=== PATIENT | male | born 1980 | race Hispanic/Latino ===

== ENCOUNTER 2017-03-14 08:24 | Emergency (ER) | payer OTHER ==
[2017-03-14 10:12] LABS: BASO % 0.4 % (0.0-1.0); EOS % 0.1 % (0.0-3.0); HEMOGLOBIN 15.6 g/dl (14.0-18.0); IMMATURE GRANULOCYTE % 0.2 % (0-0); LYMPH # 0.5 10^3/uL (1.5-4.5); LYMPH % 5.3 % (24.0-44.0); MEAN CORPUSCULAR HEMOGLOBIN 29.2 pg (27.0-33.0); MEAN CORPUSCULAR HGB CONC 33.9 g/dl (32.0-36.5); MONO # 0.8 10^3/uL (0.0-0.8); NEUTROPHILS # 7.3 10^3/uL (1.8-7.7); PLATELET COUNT, AUTOMATED 281 10^3/uL (150-450); RED BLOOD COUNT 5.35 10^6/uL (4.30-6.10); WHITE BLOOD COUNT 8.5 10^3/uL (4.0-10.0)
[2017-03-14 10:24] LABS: ANION GAP 7 MEQ/L (8-16); BLOOD UREA NITROGEN 9 MG/DL (7-18); CARBON DIOXIDE LEVEL 29 MEQ/L (21-32); CHLORIDE LEVEL 102 MEQ/L (98-107); CREATININE FOR GFR 0.93 MG/DL (0.70-1.30); GLOMERULAR FILTRATION RATE > 60.0 (>60); GLUCOSE, FASTING 103 MG/DL (70-105); POTASSIUM SERUM 3.6 MEQ/L (3.5-5.1); SODIUM LEVEL 138 MEQ/L (136-145)
[2017-03-14] MEDS: LOSARTAN 50 MG TAB PO (10:54)
[2017-03-14] MEDS: IPRATROPIUM 0.5MG/ALBUTEROL 2.5MG INH SOL UD 3ML (DUONEB)(J7620) NEB (11:05)
[2017-03-14 11:41] LABS: ALBUMIN 3.8 GM/DL (3.2-5.2); ALBUMIN/GLOBULIN RATIO 0.78 (1.00-1.93); ALKALINE PHOSPHATASE 63 U/L (45-117); ALT/SGPT 24 U/L (12-78); AST/SGOT 22 U/L (7-37); BILIRUBIN,DIRECT < 0.1 MG/DL (0.0-0.2); BILIRUBIN,TOTAL 0.4 MG/DL (0.2-1.0); CK-MB VALUE MASS 2.3 NG/ML (0.0-3.6); CPK CREATINE PHOSPHOKINASE 215 U/L (39-308); MB/CK RELATIVE INDEX 1.06 (< OR =4); TOTAL PROTEIN 8.7 GM/DL (6.4-8.2); TROPONIN I 0.03 NG/ML (< 0.10)
[2017-03-14] MEDS: ACETAMINOPHEN TAB 650MG DOSE (2X325MG) PO (11:52)
[2017-03-14] MEDS ORDERED: OSELTAMIVIR PHOSPHATE 75 MG CAP (TAMIFLU) PO (15:00)
== END 2017-03-14 15:17 | disposition home or self-care (01) ==
LOC: M ED 08:24
DX: J10.1 Influenza due to other identified influenza virus with other respiratory manifestations (principal); I10 Essential (primary) hypertension; J45.909 Unspecified asthma, uncomplicated
CPT/HCPCS: 71046

== ENCOUNTER 2017-10-19 15:49 | Emergency (ER) | payer OTHER ==
[2017-10-19] MEDS: METOCLOPRAMIDE INJ 10MG/2ML VIAL (J2765) IV (16:25)
[2017-10-19] MEDS: LOSARTAN 50 MG TAB PO (16:25)
[2017-10-19] MEDS: CHLORTHALIDONE 25 MG TAB PO (16:25)
[2017-10-19 16:39] LABS: ANION GAP 5 MEQ/L (8-16); BLOOD UREA NITROGEN 12 MG/DL (7-18); CALCIUM LEVEL 8.8 MG/DL (8.5-10.1); CARBON DIOXIDE LEVEL 31 MEQ/L (21-32); CHLORIDE LEVEL 106 MEQ/L (98-107); CREATININE FOR GFR 0.81 MG/DL (0.70-1.30); GLOMERULAR FILTRATION RATE > 60.0 (>60); GLUCOSE, FASTING 88 MG/DL (70-100); POTASSIUM SERUM 3.9 MEQ/L (3.5-5.1); SODIUM LEVEL 142 MEQ/L (136-145)
[2017-10-19] MEDS: hydrALAZINE INJ 20 MG/ML VIAL IV (17:18)
== END 2017-10-19 18:20 | disposition home or self-care (01) ==
LOC: M ED 15:49
DX: I10 Essential (primary) hypertension (principal); E66.9 Obesity, unspecified; Z91.19 Patient's noncompliance with other medical treatment and regimen; Z88.0 Allergy status to penicillin; Z79.899 Other long term (current) drug therapy
CPT/HCPCS: J2765

== ENCOUNTER → 2018-01-23 | Outpatient (REF) | payer OTHER | LOC: M SFHCLERA 11:46 | DX: R68.89 Other general symptoms and signs (principal) ==

== ENCOUNTER → 2018-01-23 | Outpatient (CLI) | payer OTHER | LOC: M LRY 11:52 | DX: R68.89 Other general symptoms and signs (principal) | CPT/HCPCS: 71046 ==

== ENCOUNTER → 2018-03-02 | Outpatient (CLI) | payer OTHER ==
[~2018-03-02] MED LIST: ALBU17IN2 INH; CHLO125TA PO; LISI40TA PO; LOSA100T50 PO; OSEL75CA PO
[2018-03-02 11:34] LABS: HEMATOCRIT 45.5 % (42.0-52.0); HEMOGLOBIN 15.2 g/dl (13.5-17.5); MEAN CORPUSCULAR HEMOGLOBIN 29.7 pg (27.0-33.0); MEAN CORPUSCULAR HGB CONC 33.4 g/dl (32.0-36.5); MEAN CORPUSCULAR VOLUME 88.9 fl (80.0-96.0); PLATELET COUNT, AUTOMATED 267 10^3/uL (150-450); RED BLOOD COUNT 5.12 10^6/uL (4.30-6.10); WHITE BLOOD COUNT 9.5 10^3/uL (4.0-10.0)
[2018-03-02 12:11] LABS: ALBUMIN 3.4 GM/DL (3.2-5.2); ALT/SGPT 27 U/L (12-78); BILIRUBIN,TOTAL 0.4 MG/DL (0.2-1.0); BLOOD UREA NITROGEN 14 MG/DL (7-18); CARBON DIOXIDE LEVEL 34 MEQ/L (21-32); CHLORIDE LEVEL 102 MEQ/L (98-107); CHOLESTEROL LEVEL 171 MG/DL (<200); CREATININE FOR GFR 1.02 MG/DL (0.70-1.30); GLOMERULAR FILTRATION RATE > 60.0 (>60); GLUCOSE, FASTING 89 MG/DL (70-100); HDL CHOLESTEROL 50 MG/DL (>40); LDL CHOLESTEROL 101 MG/DL (<100); NON-HDL-C 121 MG/DL; POTASSIUM SERUM 4.1 MEQ/L (3.5-5.1); SODIUM LEVEL 142 MEQ/L (136-145); THYROID STIMULATING HORMONE 0.926 uIU/ML (0.358-3.740); TOTAL PROTEIN 7.4 GM/DL (6.4-8.2); TRIGLYCERIDES LEVEL 102 MG/DL (<150)
[2018-03-02 12:33] LABS: HEMOGLOBIN A1c 5.5 %
--- NOTE | 2018-03-03 02:15 | REP ---
Clinical: Hypertension . Comparison: 01/23/2018, 04/01/2008 . Technique: PA and lateral. Findings: The cardiac silhouette appears prominent. The lung almonte are clear and without acute consolidation, effusion, or pneumothorax. The skeletal structures are intact and normal. Impression: 1. Cardiomegaly. Electronically Signed by Will Pineda MD 03/03/2018 02:06 A
--- NOTE | 2018-03-03 21:44 | ECGEPIP ---
Stationary ECG Study [facility] Test Date: 2018-03-02 Pat Name: CHENG ENGEL Department: Room: - Gender: M Float Phlebotomist: AZALIA : 1980 Requested By: Chapincito Daniel Order Number: [id number] Reading MD: Flo Madrid Measurements Intervals [place] Rate: 85 P: 48 VA: 183 QRS: 36 QRSD: 109 T: 55 QT: 385 QTc: 460 Interpretive Statements SINUS RHYTHM LEFT VENTRICULAR HYPERTROPHY AND ST-T CHANGE Mild QRS widening. Electronically Signed On 03-03-2018 21:44:01 EST by Flo Madrid
== END ==
LOC: M LAB 10:55
PROVIDERS: ATTEND Family Medicine
DX: I51.7 Cardiomegaly (principal); J44.9 Chronic obstructive pulmonary disease, unspecified

== ENCOUNTER 2018-03-21 11:20 | Emergency (ER) | payer OTHER ==
[~2018-03-21] VITALS: Ht 162.6 cm; Wt 144.2 kg
--- NOTE | 2018-03-21 12:50 | REP ---
Clinical: Trauma with pain and swelling. Technique: AP, lateral, bilateral oblique and sunrise views left knee . Findings: The osseous structures and joint spaces are intact and normal. There is no evidence for acute fracture or dislocation. No joint effusion is appreciated. Surrounding soft tissues are unremarkable. No subcutaneous emphysema or radiodense foreign body. Impression: Normal examination. No acute fracture or dislocation. Electronically Signed by Will Pineda MD 03/21/2018 12:41 P
[2018-03-21] MEDS ORDERED: NAPR-50 PO (13:09)
[2018-03-21 13:22] VITALS: BP 129/85
== END 2018-03-21 13:49 | disposition home or self-care (01) ==
LOC: M ED 11:20
DX: M25.462 Effusion, left knee (principal); S83.92XA Sprain of unspecified site of left knee, initial encounter; X58.XXXA Exposure to other specified factors, initial encounter; Y92.89 Other specified places as the place of occurrence of the external cause; I10 Essential (primary) hypertension; J45.909 Unspecified asthma, uncomplicated; Z79.899 Other long term (current) drug therapy; Z88.0 Allergy status to penicillin

== ENCOUNTER 2019-08-04 11:56 | Emergency (ER) | payer OTHER ==
[~2019-08-04] VITALS: Ht 160 cm; Wt 165.4 kg
[~2019-08-04 11:56] MED LIST changes: -ALBU17IN2 INH; +NAPR-837 PO; +PROV108A INH
[2019-08-04] MEDS ORDERED: CARV12.5 (12:04)
[2019-08-04] MEDS ORDERED: ALBU83IN (12:04)
[2019-08-04] MEDS ORDERED: ENTR1TAB4 (12:04)
[2019-08-04] MEDS ORDERED: ENTRESTO 97-103MG TABLET (SACUBITRIL/VALSARTAN) PO STA (12:18)
[2019-08-04] MEDS ORDERED: CARVedilol 12.5 MG TAB PO ONE (12:30)
--- NOTE | 2019-08-04 15:09 | REP ---
Four views left knee: 08/04/2019. Indication: Left knee pain following injury. Comparison: 03/21/2018. Findings: There is no acute fracture, subluxation or dislocation. Joint space height is maintained. No joint effusion is present. There are no lytic or blastic lesions. Impression: No acute fracture. Electronically Signed by Grabiel Chow DO 08/04/2019 03:00 P
--- NOTE | 2019-08-04 15:12 | REP ---
Single view chest: 08/04/2019. Indication: Chest pain. Comparison: 03/02/2018. Findings: The lungs are clear. Left-sided pacer/ AICD is noted. Borderline prominent cardiac silhouette is present. There is no pleural effusion or pneumothorax. There is no evidence of lung contusion. Impression: Clear lungs. Electronically Signed by Grabiel Chow DO 08/04/2019 03:03 P
[2019-08-04 15:13] VITALS: BP 155/103
== END 2019-08-04 15:14 | disposition home or self-care (01) ==
LOC: M ED 11:56 → EDBD 11:56 → M ED 15:14
DX: S20.219A Contusion of unspecified front wall of thorax, initial encounter (principal); S80.212A Abrasion, left knee, initial encounter; V43.52XA Car driver injured in collision with other type car in traffic accident, initial encounter; Y92.9 Unspecified place or not applicable; Y93.9 Activity, unspecified; Y99.9 Unspecified external cause status; I10 Essential (primary) hypertension; J45.909 Unspecified asthma, uncomplicated; F17.200 Nicotine dependence, unspecified, uncomplicated; Z79.899 Other long term (current) drug therapy; Z88.0 Allergy status to penicillin

== ENCOUNTER 2019-11-20 22:53 | Inpatient (IN) | payer OTHER ==
[~2019-11-20] VITALS: Ht 162.6 cm; Wt 170.4 kg
[~2019-11-20 22:53] MED LIST changes: +ALBU83IN; +CARV12.5; +ENTR1TAB4
[2019-11-20 23:56] LABS: BASO % 0.2 % (0.0-1.0); EOS # 0.2 10^3/uL (0.0-0.5); EOS % 1.3 % (0.0-3.0); HEMATOCRIT 41.4 % (42.0-52.0); HEMOGLOBIN 12.8 g/dl (13.5-17.5); LYMPH # 1.3 10^3/uL (1.5-5.0); LYMPH % 10.5 % (24.0-44.0); MEAN CORPUSCULAR HEMOGLOBIN 27.2 pg (27.0-33.0); MEAN CORPUSCULAR HGB CONC 30.9 g/dl (32.0-36.5); MEAN CORPUSCULAR VOLUME 88.1 fl (80.0-96.0); MONO # 0.7 10^3/uL (0.0-0.8); MONO % 5.5 % (0.0-5.0); NEUTROPHILS # 10.1 10^3/uL (1.5-8.5); NEUTROPHILS % 81.9 % (36.0-66.0); PLATELET COUNT, AUTOMATED 274 10^3/uL (150-450); WHITE BLOOD COUNT 12.3 10^3/uL (4.0-10.0)
--- NOTE | 2019-11-21 00:02 | REPVR ---
PROCEDURE INFORMATION: Exam: XR Chest, 1 View Exam date and time: 11/20/2019 11:32 PM Age: 39 years old Clinical indication: Other: Cough; Additional info: Dyspnea/cough TECHNIQUE: Imaging protocol: XR of the chest Views: 1 view. COMPARISON: MA Chest, 1 view 08/04/2019 12:21 PM FINDINGS: Tubes, catheters and devices: Single lead pacer is present, with lead projecting over the right ventricle. Lungs: Degree of lung inflation is normal. No evidence of pulmonary edema. No focal consolidation or parenchymal lung mass. Pleural space: No pleural effusion or pneumothorax. Heart/Mediastinum: Cardiac silhouette is prominent in size. No adenopathy or hilar mass. Bones/joints: Osseous structures show no concerning abnormality. IMPRESSION: 1. No acute or focal cardiopulmonary process. 2. Cardiac enlargement without evidence of active pulmonary edema Electronically signed by: Darion Gallegos On 11/21/2019 00:02:01 AM
[2019-11-21 00:06] LABS: INR 0.88; PROTHROMBIN TIME 12.1 SECONDS (12.5-14.3)
[2019-11-21 00:45] LABS: ALBUMIN 3.1 GM/DL (3.2-5.2); ALT/SGPT 79 U/L (12-78); BILIRUBIN,DIRECT < 0.1 MG/DL (0.0-0.2); BILIRUBIN,TOTAL 0.3 MG/DL (0.2-1.0); BLOOD UREA NITROGEN 17 MG/DL (7-18); CARBON DIOXIDE LEVEL 29 MEQ/L (21-32); CHLORIDE LEVEL 106 MEQ/L (98-107); CK-MB VALUE MASS 2.9 NG/ML (<3.6); CPK CREATINE PHOSPHOKINASE 277 U/L (39-308); CREATININE FOR GFR 0.96 MG/DL (0.70-1.30); GLOMERULAR FILTRATION RATE > 60.0 (>60); GLUCOSE, FASTING 92 MG/DL (70-100); MB/CK RELATIVE INDEX 1.05 (< OR =4); NT-PRO BNP 742 PG/ML (<125); POTASSIUM SERUM 4.4 MEQ/L (3.5-5.1); SODIUM LEVEL 139 MEQ/L (136-145); THYROXINE (T4) 8.6 UG/DL (4.5-12.0); TOTAL PROTEIN 7.4 GM/DL (6.4-8.2); TROPONIN I 0.05 NG/ML (< 0.10)
[2019-11-21] MEDS ORDERED: FUROSEMIDE 40MG/4ML VIAL (J1940) IV ONE (00:45)
[2019-11-21] MEDS ORDERED: ISOVUE-370 76% 100ML VIAL As Ordered ONE (01:22)
--- NOTE | 2019-11-21 01:57 | REPVR ---
PROCEDURE INFORMATION: Exam: CT Angiography Chest With Contrast Exam date and time: 11/21/2019 1:45 AM Age: 39 years old Clinical indication: Shortness of breath TECHNIQUE: Imaging protocol: Computed tomographic angiography of the chest with intravenous contrast. 3D rendering (Not supervised by radiologist): MIP and/or 3D reconstructed images were created by the technologist. Radiation optimization: All CT scans at this facility use at least one of these dose optimization techniques: automated exposure control; mA and/or kV adjustment per patient size (includes targeted exams where dose is matched to clinical indication); or iterative reconstruction. Contrast material: ISOVUE 370; Contrast volume: 100 ml; Contrast route: INTRAVENOUS (IV); COMPARISON: CR PORTABLE CHEST X-RAY 11/20/2019 11:30 PM FINDINGS: Pulmonary arteries: No focal pulmonary artery filling defect to suggest acute pulmonary embolus. Aorta: No thoracic aortic aneurysm or dissection. Lungs: Pulmonary vascular/interstitial pattern does not suggest active pulmonary edema. No suspicious lung mass or air space process. No central endobronchial lesion. Pleural space: No pleural effusion or pneumothorax. Heart: Multi-chamber cardiac dilatation is noted. Lymph nodes: Small, nonspecific mediastinal nodes are present. Bones/joints: Bony structures show no acute fracture or destructive process. Soft tissues: Unremarkable. IMPRESSION: 1. No evidence of acute pulmonary embolus. 2. Multi chamber cardiac enlargement with right ventricular pacer present no evidence of active pulmonary edema or other acute thoracic process Electronically signed by: Darion Gallegos On 11/21/2019 01:57:11 AM
[2019-11-21] MEDS ORDERED: SYMB16INH INH (02:44)
[2019-11-21] MEDS ORDERED: ENTR1TAB4 PO (02:44)
[2019-11-21] MEDS ORDERED: PROAAER10 INH (02:44)
[2019-11-21] MEDS ORDERED: ALBU83IN INH (02:44)
[2019-11-21] MEDS ORDERED: CARV12.5 PO (02:44)
[2019-11-21] MEDS ORDERED: ACETAMINOPHEN TAB 650MG DOSE (2X325MG) PO PRN (03:30)
--- NOTE | 2019-11-21 03:39 | HPEPDOC ---
[facility] Medical History & Physical Date of Admission Nov 21, 2019 Date of Service: Nov 21, 2019 Attending Physician: MILI BAHENA DO History and Physical CHIEF COMPLAINT: Shortness of breath HISTORY OF PRESENT ILLNESS: Shaan Marie is a 39 YO morbidly obese M with history of CHF (unknown etiology, last echo on file at [facility]'s office) s/p pacemaker/AICD and on Entresto, INDRA noncompliant with CPAP who presents with one week worsening shortness of breath and lower extremity swelling. The patient reports he has poor memory and often forgets to take his medications. He first noticed his shortness of breath a week ago, noting it was more difficult for him to get around his house. He was only able to sleep upright requiring several pillows. He tried using his nebulizer up to 5 times a day with no relief. He also noticed his legs becoming harder and more swollen and his belly getting larger. His legs opened in several spots and started weeping fluid. He denies any recent fevers, chills, nausea, vomiting or diarrhea. No sick contacts. He does not comply with any diet or fluid restriction. He was recently prescribed daily Lasix by Dr. Wade's office and only took it for 10 days. PAST MEDICAL HISTORY: 1. CHF (unknown details, last echo not on file at [facility] on Entresto, s/p AICD/pacemaker placement 2. INDRA noncompliant with CPAP 3. History of asthma 4. HLD 5. HTN PAST SURGICAL HISTORY: 1. L forearm surgery 2. AICD/pacemaker placement, [facility], 2018 SOCIAL HISTORY: Current every day smoker, reports smoking 3-4 cigarettes/day Denies EtOH Denies IVDU Reports every day marijuana use FAMILY HISTORY: Father: heart disease, COPD Mother: Heart disease ALLERGIES: Please see below. REVIEW OF SYSTEMS: Constitutional: No Weight Change, No Fever, No Chills, No Night Sweats, No Fatigue, No Malaise ENT/Mouth: No Hearing Changes, No Ear Pain, No Nasal Congestion, No Sinus Pain, No Hoarseness, No sore throat, No Rhinorrhea, No Swallowing Difficulty Eyes: No Eye Pain, No Swelling, No Redness, No Foreign Body, No Discharge, No Vision Changes Cardiovascular: No Chest Pain, Reports Dyspnea on Exertion, Reports Orthopnea, No Claudication, Reports worsened lower extremity and abdominal edema Respiratory: Reports shortness of breath with activity and rest, no wheezing, no cough, reports PND, inability to lay flat Gastrointestinal: No Nausea, No Vomiting, No Diarrhea, No Constipation, No Pain, No Heartburn, No Anorexia, No Dysphagia, No Hematochezia, No Melena, No Flatulence, No Jaundice Genitourinary: No Dysmenorrhea, No DUB, No Dyspareunia, No Dysuria Musculoskeletal: No Arthralgias, No Myalgias, No Joint Swelling, No Joint St iffness, No Back Pain, No Neck Pain, No Injury History Skin: No Skin Lesions, No Pruritis, No Hair Changes, No Breast/Skin Changes, No Nipple Discharge Neuro: No Weakness, No Numbness, No Paresthesias, No Loss of Consciousness, No Syncope, No Dizziness, No Headache, No Coordination Changes, No Recent Falls Psych: No Anxiety/Panic, No Depression, No Insomnia, No Personality Changes, No Delusions Heme/Lymph: No Bruising, No Bleeding, No Transfusions History, No Lymphadenopathy Endocrine: No Polyuria, No Polydipsia, No Temperature Intolerance HOME MEDICATIONS: Please see below. VITAL SIGNS: see below GENERAL: morbidly obese, alert and oriented, in no apparent distress, pleasant and conversant in full sentences. HEENT: PERRL, EOMI, Oral mucous membranes are moist without lesions. NECK: Unable to determine JVD. No adenopathy is appreciated. No thyromegaly CHEST/LUNGS: Lungs are clear bilaterally without rhonchi, rales, or wheezes. There is no subcutaneous air appreciated. There is no tenderness to the chest wall. HEART:Regular rate and rhythm. No murmurs, rubs, or gallops are appreciated. Distal pulses are 2+. No carotid bruits appreciated. ABDOMEN: Morbidly obese. Soft, nontender, and nondistended. Bowel sounds are positive. Edema is present from lower extremities up to abdomen. No organomegaly is appreciated. No masses are appreciated. There are no peritoneal signs. There is no [place] sign. EXTREMITIES: Legs are very hard, 3+ pitting edema with several open wounds on R lower extremity, not actively weeping. SKIN: The patients skin is warm and dry, without rashes or lesions. PSYCHIATRIC: AAO x 3, normal mood/affect NEUROLOGIC: The patient has 5/5 strength to the upper and lower extremities bilaterally. Sensation is intact throughout. Deep tendon reflexes are 2+ in all four extremities. There are no deficits to the cranial nerves. LABORATORY DATA: See below. IMAGING: CXR: FINDINGS: Tubes, catheters and devices: Single lead pacer is present, with lead projecting over the right ventricle. Lungs: Degree of lung inflation is normal. No evidence of pulmonary edema. No focal consolidation or parenchymal lung mass. Pleural space: No pleural effusion or pneumothorax. Heart/Mediastinum: Cardiac silhouette is prominent in size. No adenopathy or hilar mass. Bones/joints: Osseous structures show no concerning abnormality. IMPRESSION: 1. No acute or focal cardiopulmonary process. 2. Cardiac enlargement without evidence of active pulmonary edema CT ANGIO CHEST: FINDINGS: Pulmonary arteries: No focal pulmonary artery filling defect to suggest acute pulmonary embolus. Aorta: No thoracic aortic aneurysm or dissection. Lungs: Pulmonary vascular/interstitial pattern does not suggest active pulmonary edema. No suspicious lung mass or air space process. No central endobronchial lesion. Pleural space: No pleural effusion or pneumothorax. Heart: Multi-chamber cardiac dilatation is noted. Lymph nodes: Small, nonspecific mediastinal nodes are present. Bones/joints: Bony structures show no acute fracture or destructive process. Soft tissues: Unremarkable. IMPRESSION: 1. No evidence of acute pulmonary embolus. 2. Multi chamber cardiac enlargement with right ventricular pacer present no evidence of active pulmonary edema or other acute thoracic process MICROBIOLOGY: Please see below. ASSESSMENT: Shaan Marie is a morbidly obese M with history of CHF (unknown details, on Entresto, s/p pacemaker/AICD) who presents with shortness of breath, worsened lower extremity edema up to abdomen, PND concerning for acute congestive heart failure exacerbation. . PLAN: 1. Acute congestive heart failure exacerbation: -Would recommend day team obtain last office records, Echo results from Dr. Wade's office in AM -Dr. Wade was called and case discussed with ED MD. Recommended admission for diuresis and will see tomorrow. Will place consult. -IV Lasix 40mg Q4H, titrate for -3L output / 24 h -Continue Entresto, Carvedilol -BNP not elevated, although unreliable in the setting of ongoing Entresto use -Strict I/O -Weigh daily -2g sodium diet with 1500cc/day fluid restriction -Oxygen titration 88-92% -Troponins negative for ischemia, no EKG changes noted 2. Transaminitis: AST 58, ALT 79 -Likely 2/2 congestive hepatopathy from CHF. Continue to trend 3. Morbid obesity: -A1c, Lipid panel ordered DVT ppx: Lovenox Vital Signs Vital Signs Date Time Temp Pulse Resp B/P (MAP) Pulse Ox O2 Delivery O2 Flow Rate FiO2 11/21/19 01:08 103 97 11/21/19 01:00 22 169/85 (113) Room Air 11/20/19 23:12 97.8 Laboratory Data Labs 24H Laboratory Tests 2 11/20/19 23:20: Immature Granulocyte % (Auto) 0.6, Neutrophils (%) (Auto) 81.9H, Lymphocytes (%) (Auto) 10.5L, Monocytes (%) (Auto) 5.5H, Eosinophils (%) (Auto) 1.3, Basophils (%) (Auto) 0.2, Neutrophils # (Auto) 10.1H, Lymphocytes # (Auto) 1.3L, Monocytes # (Auto) 0.7, Eosinophils # (Auto) 0.2, Basophils # (Auto) 0.0, Nucleated Red Blood Cells % (auto) 0.0, Prothrombin Time 12.1, Prothromb Time International Ratio 0.88, Anion Gap 4L, Glomerular Filtration Rate > 60.0, Calcium Level 9.0, Total Bilirubin 0.3, Direct Bilirubin < 0.1, Aspartate Amino Transf (AST/SGOT) 58H, Alanine Aminotransferase (ALT/SGPT) 79H, Alkaline Phosphatase 67, Total Creatine Kinase 277, Creatine Kinase MB 2.9, Creatine Kinase MB Relative Index 1.05, Troponin I 0.05, YD-Iwo-N-Type Natriuretic Peptide 742H, Total Protein 7.4, Albumin 3.1L, Albumin/Globulin Ratio 0.7, Thyroid Stimulating Hormone (TSH) 1.500, Thyroxine (T4) 8.6 11/20/19 23:37: POC Glucose (Misc Panel) 98, POC Sodium (Misc Panel) 142, POC Potassium (Misc Panel) 3.6, POC Chloride (Misc Panel) 101, POC Total CO2 (Misc Panel) 27.0, POC Blood Urea Nitrogen (Misc Panel 16, POC Ionized Calcium (Misc Panel) 4.6, POC Creatinine (Misc Panel) 0.9, POC Hematocrit (Misc Panel) 44.0 CBC/BMP Laboratory Tests 11/20/19 23:20 Microbiology Microbiology 11/20/19 Blood Culture, Received Pending 11/20/19 Blood Culture, Received Pending Home Medications Scheduled Albuterol Sulfate (Proair Hfa) 8.5 Gm Hfa.aer.ad, 2 PUFF INH QID Budesonide/Formoterol (Symbicort 160-4.5 Mcg Inhaler) 6 Gm Hfa.aer.ad, 2 PUFF INH BID Carvedilol (Carvedilol) 12.5 Mg Tablet, 12.5 MG PO BID Sacubitril/Valsartan (Entresto 97 mg-103 mg Tablet) 1 Each Tablet, 1 TAB PO BID Scheduled PRN Albuterol Sulf (Albuterol Sulfate) 2.5 Mg/3 Ml Vial.neb, 2.5 MG INH Q6H PRN for SHORTNESS OF BREATH Allergies Coded Allergies: Penicillins (Verified Allergy, Unknown, 08/04/19) A-FIB/CHADSVASC A-FIB History Current/History of A-Fib/PAF?: No NAHID LEPE MD Nov 21, 2019 02:33
[2019-11-21] MEDS: FUROSEMIDE 40MG/4ML VIAL (J1940) IV SCH ×5 (04:00→19:55)
[2019-11-21 04:13] LABS: CHOLESTEROL LEVEL 128 MG/DL (<200); CHOLESTEROL RISK RATIO 2.976 (<5); HDL CHOLESTEROL 43 MG/DL (>40); LDL CHOLESTEROL 67 MG/DL (<100); NON-HDL-C 85 MG/DL; TRIGLYCERIDES LEVEL 90 MG/DL (<150)
[2019-11-21 04:21] LABS: HEMOGLOBIN A1c 5.5 %
[2019-11-21 04:45] VITALS: BP 218/162
[2019-11-21 05:00] VITALS: BP 190/116
[2019-11-21] MEDS ORDERED: amLODIPine 5 MG TAB PO SCH (05:15)
[2019-11-21 06:57] VITALS: BP 192/120
[2019-11-21] MEDS: SYMBICORT 160/4.5MCG INHALER 6GM INH SCH ×2 (07:34→19:28)
--- NOTE | 2019-11-21 07:44 | ECGEPIP ---
[facility] - ED Test Date: 2019-11-20 Pat Name: CHENG ENGEL Department: Room: [place] [address] Gender: Male Mechanical Manufacturing Engineer: silvano : 1980 Requested By: CATHERINE Joyce Order Number: [id number] Reading MD: Lyndon Ramey Measurements Intervals [place] Rate: 103 P: 55 PA: 180 QRS: 36 QRSD: 114 T: 196 QT: 360 QTc: 472 Interpretive Statements SINUS TACHYCARDIA POSSIBLE LEFT ATRIAL ENLARGEMENT LEFT VENTRICULAR HYPERTROPHY AND ST-T CHANGE SIMILAR TO 03/02/18 Electronically Signed on 11-21-2019 7:43:49 EDT by Lyndon Ramey
[2019-11-21 08:00] VITALS: BP 180/90
[2019-11-21] MEDS: ENOXAPARIN 40MG/0.4ML SYRINGE (J1650 PER 10MG) SC SCH (08:28)
[2019-11-21] MEDS: CARVedilol 12.5 MG TAB PO SCH ×2 (08:29→20:34)
[2019-11-21 08:37] LABS: ALBUMIN 3.4 GM/DL (3.2-5.2); ALT/SGPT 79 U/L (12-78); BILIRUBIN,TOTAL 0.5 MG/DL (0.2-1.0); BLOOD UREA NITROGEN 13 MG/DL (7-18); CALCIUM LEVEL 8.9 MG/DL (8.5-10.1); CARBON DIOXIDE LEVEL 30 MEQ/L (21-32); CHLORIDE LEVEL 105 MEQ/L (98-107); CREATININE FOR GFR 0.97 MG/DL (0.70-1.30); GLOMERULAR FILTRATION RATE > 60.0 (>60); GLUCOSE, FASTING 93 MG/DL (70-100); POTASSIUM SERUM 3.5 MEQ/L (3.5-5.1); SODIUM LEVEL 142 MEQ/L (136-145); TOTAL PROTEIN 7.4 GM/DL (6.4-8.2)
[2019-11-21 10:00] VITALS: BP 150/80
--- NOTE | 2019-11-21 11:43 | IPNPDOC ---
Text Note Date of Service The patient was seen on 11/21/19. NOTE HPI: Mr. Marie is a 39yo male with PMH of CHF, asthma, and morbid obesity who presented to the ED with 1 week worsening SOB and LE edema. SUBJECTIVE: Mr. Marie stated that when he first felt short of breath he took a dose of his rescue inhaler and when the SOB did not improve he took 4 does of Symbicort which still did not improve the SOB so he came to the ED. He stated that he used to be able to walk approx. 100 yards with no issues, but last night he could not walk the 5 feet to his mailbox without getting short of breath. He stated that he had noticed his LE getting bigger, but didn't think it was a big deal until his legs felt tight and fluid started to seep out. When asked about his medications, he stated that he was told to take his Lasix for 10 days and then to stop, but that he may have misunderstand the directions he was given. He also had not been taking any of his medications for the past few days. Since receiving one dose of Lasix at 0400, he has lost approx. 4.5L of fluid and his BP has reportedly lowered to 150/80. He denied chest pain/pressure/tightness, wheezes, cough, blurred vision, nausea, vomiting, or constipation. OBJECTIVE: VITAL SIGNS: please see below GENERAL: Pt is lying comfortably on the bed, appears stated age, and in NAD. HEENT: NC, AT, no scleral icterus, PERRLA, no pharyngeal erythema. NECK: no JVD or LAD appreciated. CV: RRR without murmurs, rubs, or gallops. RESPIRATORY: CTAB without wheezes, rhonchi, or rales. Tidal volume was low. ABDOMEN: soft, obese, NT, ND, bowel sounds present in all 4 quadrants. EXTREMITIES: strength 5/5 in all 4 extremities, but could not extend L elbow against resistance d/t past forearm surgery. Sensation intact in all 4 extremities. +3 pitting edema in calves and feet BL. NEURO: A&Ox3. PSYCH: normal mood and affect. LABORATORY: please see below MICROBIOLOGY: please see below IMAGING: CXR: Impression 1. No acute or focal cardiopulmonary process. 2. Cardiac enlargement without evidence of active pulmonary edema CT CHEST ANGIOGRAPHY: Impression 1. No evidence of acute pulmonary embolus. 2. Multi chamber cardiac enlargement with right ventricular pacer present no evidence of active pulmonary edema or other acute thoracic process ASSESSMENT/PLAN: # SOB & LE edema 2/2 CHF exacerbation - Lasix 40mg IV BID - Daily weight check - 2g Na diet - 1.5L fluid restriction daily - Continue Entresto and Carvedilol # Asthma - Continue Albuterol & Symbicort prn # Morbid Obesity - A1c 5.5 -Complicating care DVT ppx: Lovenox VS,Fishbone, I+O VS, Fishbone, I+O Laboratory Tests 11/20/19 23:20 11/21/19 05:46 Vital Signs Date Time Temp Pulse Resp B/P (MAP) Pulse Ox O2 Delivery O2 Flow Rate FiO2 11/21/19 10:00 150/80 (103) 11/21/19 08:29 96 11/21/19 06:30 98.4 24 95 Room Air I&O- Last 24 Hours up to 6 AM 11/21/19 06:00 Intake Total 0 ml Output Total 3650 ml Balance -3650 ml GME ATTESTATION GME ATTESTATION My faculty preceptor for this patient encounter was physically present during the encounter and was fully available. All aspects of the patient interview, examination, medical decision making process, and medical care plan development were reviewed and approved by the faculty preceptor. The faculty preceptor is aware and concurs with the plan as stated in the body of this note and will attest to such by his/her cosignature. ATTENDING NOTE Patient was seen and examined by me personally with the residents and students. Agree with the above assessment and plan DAPHNEY LANDON OMS-3 Nov 21, 2019 11:43 MEHREEN GAUTHIER MD Nov 28, 2019 09:32
[2019-11-21] MEDS: ENTRESTO 97-103MG TABLET (SACUBITRIL/VALSARTAN) PO SCH ×2 (13:07→20:34)
[2019-11-21] MEDS: **hydrALAZINE** 10 MG TAB PO SCH (20:33)
[2019-11-21 22:00] VITALS: BP 165/94
[2019-11-22 04:00] VITALS: BP 130/80
[2019-11-22] MEDS: FUROSEMIDE 40MG/4ML VIAL (J1940) IV SCH ×4 (04:07→17:27)
[2019-11-22 06:34] LABS: HEMATOCRIT 46.2 % (42.0-52.0); MEAN CORPUSCULAR HEMOGLOBIN 27.7 pg (27.0-33.0); MEAN CORPUSCULAR VOLUME 86.4 fl (80.0-96.0); PLATELET COUNT, AUTOMATED 296 10^3/uL (150-450); RED BLOOD COUNT 5.35 10^6/uL (4.30-6.10); WHITE BLOOD COUNT 10.2 10^3/uL (4.0-10.0)
[2019-11-22 06:38] LABS: HEMOGLOBIN 14.8 g/dl (13.5-17.5)
[2019-11-22 07:01] LABS: ALBUMIN 3.3 GM/DL (3.2-5.2); ALT/SGPT 69 U/L (12-78); BILIRUBIN,TOTAL 0.6 MG/DL (0.2-1.0); BLOOD UREA NITROGEN 14 MG/DL (7-18); CALCIUM LEVEL 9.6 MG/DL (8.5-10.1); CARBON DIOXIDE LEVEL 31 MEQ/L (21-32); CHLORIDE LEVEL 102 MEQ/L (98-107); CREATININE FOR GFR 0.97 MG/DL (0.70-1.30); GLOMERULAR FILTRATION RATE > 60.0 (>60); GLUCOSE, FASTING 94 MG/DL (70-100); POTASSIUM SERUM 3.6 MEQ/L (3.5-5.1); SODIUM LEVEL 137 MEQ/L (136-145); TOTAL PROTEIN 7.4 GM/DL (6.4-8.2)
[2019-11-22] MEDS: ENTRESTO 97-103MG TABLET (SACUBITRIL/VALSARTAN) PO SCH ×2 (08:24→20:51)
[2019-11-22] MEDS: **hydrALAZINE** 10 MG TAB PO SCH ×3 (08:28→20:52)
[2019-11-22] MEDS: amLODIPine 5 MG TAB PO SCH (08:29)
[2019-11-22] MEDS: CARVedilol 12.5 MG TAB PO SCH ×2 (08:29→20:52)
[2019-11-22] MEDS: ENOXAPARIN 40MG/0.4ML SYRINGE (J1650 PER 10MG) SC SCH (08:29)
[2019-11-22] MEDS: SYMBICORT 160/4.5MCG INHALER 6GM INH SCH ×2 (09:51→19:58)
--- NOTE | 2019-11-22 12:21 | IPNPDOC ---
Date Seen The patient was seen on 11/22/19. Progress Note SUBJECTIVE: Shaan was seen and examined this morning by the hospitalist service while sitting in bedside chair. No acute events occurred overnight. He stated that he had issues sleeping due to being uncomfortable in the bed and that he felt more short of breath when he was lying down compared to sitting up or standing. Overall, his shortness of breath is moderately improved from presentation on the overnight of 11/19-11/20. He was complaining this morning about nausea that is triggered by seeing and smelling food, but is drinking just fine. He also endorses mild nonproductive cough. He does feel as though the amount of swelling in his legs has improved over the past 24 hours. He is ambulating under is own power to the bathroom and has been urinating well with multiple BMs since admission. He stated that when he felt short of breath overnight, he would put his cpap on which only made him feel more constricted and out of breath. He denies any current or overnight fever, chills, night sweats, chest pain, palpitations, vomiting, constipation, or diarrhea. OBJECTIVE PHYSICAL EXAMINATION: VITAL SIGNS: Please see below. GENERAL: Pt was seated on bedside chair, appears stated age, and in NAD. HEENT: NC, AT, no scleral icterus, PERRLA, no pharyngeal erythema. NECK: no JVD or LAD appreciated. CV: RRR without murmurs, rubs, or gallops. RESPIRATORY: CTAB without wheezes, rhonchi, or rales. Tidal volume was low. ABDOMEN: soft, obese, NT, ND, bowel sounds present in all 4 quadrants. EXTREMITIES: strength 5/5 in all 4 extremities, but could not extend L elbow against resistance d/t past forearm surgery. Sensation intact in all 4 extremities. +3 pitting edema in calves and feet BL. NEURO: A&Ox3. PSYCH: normal mood and affect. LABORATORY DATA & MICROBIOLOGY: Please see below. IMAGING: CXR: Impression 1. No acute or focal cardiopulmonary process. 2. Cardiac enlargement without evidence of active pulmonary edema CT CHEST ANGIOGRAPHY: Impression 1. No evidence of acute pulmonary embolus. 2. Multi chamber cardiac enlargement with right ventricular pacer present no evidence of active pulmonary edema or other acute thoracic process ASSESSMENT AND PLAN: # SOB & LE edema 2/2 HFrEF (last EF 04/2018 30-35% s/p defibrillator in 01/2019) - C/w Lasix 40mg IV BID - Pt had excellent response to lasix w/ approx 6L of urine output in the past 30 hours - C/w Coreg and Entresto - Morning sK was wnl, sMg level has been ordered; morning bmp f/u tomorrow (11/23/19) - Daily weight check - 2g Na diet - 1.5L fluid restriction daily # Asthma - Continue Albuterol & Symbicort prn # Morbid Obesity - A1c 5.5 on 11/20/19 - Complicating care DVT prophylaxis ordered: Lovenox 40mg SC QD DISPOSITION: Potential discharge in next 24-36 hours pending continued fluid status improvement with diuresis and BP control. VS, I&O, 24H, Fishbone Vital Signs/I&O Vital Signs Date Time Temp Pulse Resp B/P (MAP) Pulse Ox O2 Delivery O2 Flow Rate FiO2 11/22/19 08:28 121/86 11/22/19 04:00 98.6 83 20 98 Nasal Cannula 2.0 I&O- Last 24 Hours up to 6 AM 11/22/19 06:00 Intake Total 870 ml Output Total 2650 ml Balance -1780 ml Laboratory Data 24H LABS Laboratory Tests 2 11/22/19 06:18: Nucleated Red Blood Cells % (auto) 0.0, Anion Gap 4L, Glomerular Filtration Rate > 60.0, Calcium Level 9.6, Magnesium Level 2.0, Total Bilirubin 0.6, Aspartate Amino Transf (AST/SGOT) 37, Alanine Aminotransferase (ALT/SGPT) 69, Alkaline Phosphatase 64, Total Protein 7.4, Albumin 3.3, Albumin/Globulin Ratio 0.8 CBC/BMP Laboratory Tests 11/22/19 06:18 Microbiology Microbiology 11/20/19 Blood Culture - Preliminary, Resulted No growth after 24 hours . All specim... 11/20/19 Blood Culture - Preliminary, Resulted No growth after 24 hours . All specim... ROSENDO LEIVA D.O. Nov 22, 2019 12:21
[2019-11-22 14:00] VITALS: BP 129/86
[2019-11-22 22:00] VITALS: BP 130/86
[2019-11-23 06:00] VITALS: BP 132/82
[2019-11-23 06:39] LABS: HEMATOCRIT 46.8 % (42.0-52.0); HEMOGLOBIN 14.9 g/dl (13.5-17.5); MEAN CORPUSCULAR HEMOGLOBIN 27.7 pg (27.0-33.0); MEAN CORPUSCULAR HGB CONC 31.8 g/dl (32.0-36.5); PLATELET COUNT, AUTOMATED 292 10^3/uL (150-450); RED BLOOD COUNT 5.38 10^6/uL (4.30-6.10); WHITE BLOOD COUNT 10.1 10^3/uL (4.0-10.0)
[2019-11-23 07:10] LABS: ALBUMIN 3.2 GM/DL (3.2-5.2); ALT/SGPT 59 U/L (12-78); BILIRUBIN,TOTAL 0.4 MG/DL (0.2-1.0); BLOOD UREA NITROGEN 16 MG/DL (7-18); CALCIUM LEVEL 9.1 MG/DL (8.5-10.1); CARBON DIOXIDE LEVEL 31 MEQ/L (21-32); CHLORIDE LEVEL 102 MEQ/L (98-107); CREATININE FOR GFR 0.95 MG/DL (0.70-1.30); GLOMERULAR FILTRATION RATE > 60.0 (>60); GLUCOSE, FASTING 98 MG/DL (70-100); MAGNESIUM LEVEL 2.1 MG/DL (1.8-2.4); POTASSIUM SERUM 3.4 MEQ/L (3.5-5.1); SODIUM LEVEL 139 MEQ/L (136-145); TOTAL PROTEIN 7.2 GM/DL (6.4-8.2)
[2019-11-23] MEDS: SYMBICORT 160/4.5MCG INHALER 6GM INH SCH (07:27)
[2019-11-23] MEDS: FUROSEMIDE 40MG/4ML VIAL (J1940) IV SCH (08:17)
[2019-11-23] MEDS: ENTRESTO 97-103MG TABLET (SACUBITRIL/VALSARTAN) PO SCH (08:17)
[2019-11-23 08:18] VITALS: BP 137/89
[2019-11-23] MEDS: CARVedilol 12.5 MG TAB PO SCH (08:18)
[2019-11-23] MEDS: amLODIPine 5 MG TAB PO SCH (08:18)
[2019-11-23] MEDS: **hydrALAZINE** 10 MG TAB PO SCH (08:19)
[2019-11-23] MEDS: ENOXAPARIN 40MG/0.4ML SYRINGE (J1650 PER 10MG) SC SCH (08:19)
[2019-11-23] MEDS ORDERED: POTASSIUM CHLORIDE 10 MEQ SR TABLET PO ONE (09:00)
[2019-11-23] MEDS ORDERED: LASI40TA9 PO (09:58)
--- NOTE | 2019-11-23 10:05 | DS.PDOC ---
Discharge Summary General Date of Admission Nov 21, 2019 at 03:19 Date of Discharge 11/23/2019 Discharge Summary Chief complaint: Shortness of breath Final diagnosis Acute exacerbation of systolic heart failure. History of present illness and Hospital course: Shaan Marie is a 39 YO morbidly obese M with history of CHF , likely nonischemic (unknown etiology, last echo on file at [facility]'s office) s/p pacemaker/AICD and on Entresto, and Coreg INDRA noncompliant with CPAP who presents with one week worsening shortness of breath and lower extremity swelling. He was only able to sleep upright requiring michelle ral pillows. He tried using his nebulizer up to 5 times a day with no relief. He also noticed his legs becoming harder and more swollen and his belly getting larger. His legs opened in several spots and started weeping fluid. . He states that he has not been taking any water pills and took them for sometime and after that he had stopped. He also drinks around 12 packs of jose jennifer a day. He was in acute decompensated systolic heart failure. Likely nonischemic. He was diuresed with 40 of IV Lasix and 3 days he is in a negative balance of around 7 L. He has been advised for fluid restriction as well as salt restriction. He will need to follow-up with PCP in 1 week to get his BMP checked in case he requires any potassium supplementation. I have discussed with him the signs and symptoms of hypokalemia. . He is on room air saturating 98%. Clinically optimized for discharge and will be discharged home today. Physical examination GENERAL: morbidly obese, alert and oriented, in no apparent distress, pleasant and conversant in full sentences. HEENT: PERRL, EOMI, Oral mucous membranes are moist without lesions. NECK: Unable to determine JVD. No adenopathy is appreciated. No thyromegaly CHEST/LUNGS: Lungs are clear bilaterally without rhonchi, rales, or wheezes HEART:Regular rate and rhythm. No murmurs, rubs, or gallops are appreciated. Distal pulses are 2+. No carotid bruits appreciated. ABDOMEN: Morbidly obese. Soft, nontender, and nondistended. Bowel sounds are positive. Edema is present from lower extremities up to abdomen. No organomegaly is appreciated. No masses are appreciated. There are no peritoneal signs. There is no [place] sign. EXTREMITIES: 2+ pedal edema, much better than yesterday SKIN: The patients skin is warm and dry, without rashes or lesions. PSYCHIATRIC: AAO x 3, normal mood/affect NEUROLOGIC: The patient has 5/5 strength to the upper and lower extremities bilaterally. Sensation is intact throughout. Deep tendon reflexes are 2+ in all four extremities. There are no deficits to the cranial nerves. Medications. As per discharge reconciliation medication list. , Lasix 40 daily, has been added Activity as tolerated Diet. 2 g sodium diet Follow-up appointments. PCP in 1 week. Condition on discharge. Patient is medically optimized for discharge Discharge disposition: Home Total time spent on this discharge including coordination of care, review of chart documentation and actual patient contact is around 32 minutes Vital Signs/I&Os Vital Signs Date Time Temp Pulse Resp B/P (MAP) Pulse Ox O2 Delivery O2 Flow Rate FiO2 11/23/19 08:18 86 137/89 11/23/19 06:00 98.0 18 99 Room Air 11/22/19 04:00 2.0 I&O- Last 24 Hours up to 6 AM 11/23/19 06:00 Intake Total 1340 ml Output Total 2900 ml Balance -1560 ml Laboratory Data Labs 24H Laboratory Tests 2 11/23/19 06:20: Nucleated Red Blood Cells % (auto) 0.0, Anion Gap 6L, Glomerular Filtration Rate > 60.0, Calcium Level 9.1, Magnesium Level 2.1, Total Bilirubin 0.4, Aspartate Amino Transf (AST/SGOT) 31, Alanine Aminotransferase (ALT/SGPT) 59, Alkaline Phosphatase 64, Total Protein 7.2, Albumin 3.2, Albumin/Globulin Ratio 0.8 CBC/BMP Laboratory Tests 11/23/19 06:20 Microbiology Microbiology 11/20/19 Blood Culture - Preliminary, Resulted No Growth after 48 hours. All Specime... 11/20/19 Blood Culture - Preliminary, Resulted No Growth after 48 hours. All Specime... Discharge Medications Scheduled Albuterol Sulfate (Proair Hfa) 8.5 Gm Hfa.aer.ad, 2 PUFF INH QID, (Reported) Budesonide/Formoterol (Symbicort 160-4.5 Mcg Inhaler) 6 Gm Hfa.aer.ad, 2 PUFF INH BID, (Reported) Carvedilol (Carvedilol) 12.5 Mg Tablet, 12.5 MG PO BID, (Reported) Furosemide (Lasix) 40 Mg Tablet, 40 MG PO DAILY Sacubitril/Valsartan (Entresto 97 mg-103 mg Tablet) 1 Each Tablet, 1 TAB PO BID, (Reported) Scheduled PRN Albuterol Sulf (Albuterol Sulfate) 2.5 Mg/3 Ml Vial.neb, 2.5 MG INH Q6H PRN for SHORTNESS OF BREATH, (Reported) Allergies Coded Allergies: Penicillins (Verified Allergy, Unknown, 08/04/19) MEHREEN GAUTHIER MD Nov 23, 2019 10:05
== END 2019-11-23 11:55 | disposition home or self-care (01) | DRG 194 ==
LOC: M ED 22:53 → M MSPAV 11-21 03:19 → ENRESERV 11-21 03:42
PROVIDERS: ADMIT Internal Medicine; ATTEND Internal Medicine
DX: I11.0 Hypertensive heart disease with heart failure (principal); Z68.44 Body mass index [BMI] 60.0-69.9, adult; E66.01 Morbid (severe) obesity due to excess calories; Z95.0 Presence of cardiac pacemaker; Z91.19 Patient's noncompliance with other medical treatment and regimen; G47.33 Obstructive sleep apnea (adult) (pediatric); Z88.0 Allergy status to penicillin; J45.909 Unspecified asthma, uncomplicated; F17.210 Nicotine dependence, cigarettes, uncomplicated; Z79.899 Other long term (current) drug therapy; I50.21 Acute systolic (congestive) heart failure